=== PATIENT | female | born 1990 | race African-American/Black ===

== ENCOUNTER → 2022-05-01 02:55 | Outpatient (CLI) | payer BC, SELFPAY ==
[2022-05-01 11:21] LABS: SARS-CoV-2 RNA PCR Negative
== END ==
PROVIDERS: PCP Emergency Medicine; Visit Provider Emergency Medicine
DX: Z20.822 Contact with and (suspected) exposure to COVID-19 (principal)
CPT/HCPCS: C9803; U0003; U0005